=== PATIENT | female | born 1945 | race Caucasian/White ===

== ENCOUNTER 2018-07-01 13:41 | Emergency (ER) | payer MEDICARE ==
[~2018-07-01] VITALS: Ht 165.1 cm; Wt 113.6 kg
[2018-07-01 14:13] VITALS: BP 169/89
[2018-07-01] MEDS ORDERED: ibuprofen tablet 400 MG TABLET PO ONE (14:25)
[2018-07-01] MEDS ORDERED: HYDR-4353 PO (14:50)
[2018-07-01] MEDS ORDERED: NAPR-56 PO (14:50)
== END 2018-07-01 15:39 | disposition home or self-care (01) ==
LOC: ER 13:42
DX: S52.502A Unspecified fracture of the lower end of left radius, initial encounter for closed fracture (principal); W01.198A Fall on same level from slipping, tripping and stumbling with subsequent striking against other object, initial encounter; Y93.89 Activity, other specified; Y92.89 Other specified places as the place of occurrence of the external cause; Y99.8 Other external cause status
CPT/HCPCS: 29125; 73110; 99284

== ENCOUNTER 2018-07-08 09:59 | Outpatient (CLI) | payer MEDICARE ==
[~2018-07-08 09:59] MED LIST: NAPR-56 PO
[2018-07-08 10:03] VITALS: BP 164/79
== END 2018-07-08 10:45 | disposition home or self-care (01) ==
LOC: ORTHO 09:59
PROVIDERS: ATTEND Nurse Practitioner Family
DX: S52.592A Other fractures of lower end of left radius, initial encounter for closed fracture (principal); M85.88 Other specified disorders of bone density and structure, other site; W01.0XXA Fall on same level from slipping, tripping and stumbling without subsequent striking against object, initial encounter; Y93.89 Activity, other specified; Y92.89 Other specified places as the place of occurrence of the external cause; Y99.8 Other external cause status
CPT/HCPCS: 73110; 99213; A4590

== ENCOUNTER 2018-07-22 10:43 | Outpatient (CLI) | payer MEDICARE ==
[2018-07-22 10:46] VITALS: BP 142/60
== END 2018-07-22 11:41 | disposition home or self-care (01) ==
LOC: ORTHO 10:43
PROVIDERS: ATTEND Nurse Practitioner Family
DX: S52.592D Other fractures of lower end of left radius, subsequent encounter for closed fracture with routine healing (principal); I10 Essential (primary) hypertension; F32.9 Major depressive disorder, single episode, unspecified; W18.09XD Striking against other object with subsequent fall, subsequent encounter
CPT/HCPCS: 73110; 99213; A4590

== ENCOUNTER 2018-08-05 10:40 | Outpatient (CLI) | payer MEDICARE ==
[2018-08-05 10:36] VITALS: BP 163/86
== END 2018-08-05 11:02 | disposition home or self-care (01) ==
LOC: ORTHO 10:40
PROVIDERS: ATTEND Nurse Practitioner Family
DX: S52.592D Other fractures of lower end of left radius, subsequent encounter for closed fracture with routine healing (principal); I10 Essential (primary) hypertension; F32.9 Major depressive disorder, single episode, unspecified; W01.0XXD Fall on same level from slipping, tripping and stumbling without subsequent striking against object, subsequent encounter
CPT/HCPCS: 73110

== ENCOUNTER 2018-08-26 09:38 | Outpatient (CLI) | payer MEDICARE ==
[2018-08-26 09:35] VITALS: BP 155/73
== END 2018-08-26 10:01 | disposition home or self-care (01) ==
LOC: ORTHO 09:38
PROVIDERS: ATTEND Nurse Practitioner Family
DX: S52.592G Other fractures of lower end of left radius, subsequent encounter for closed fracture with delayed healing (principal); M85.88 Other specified disorders of bone density and structure, other site; I10 Essential (primary) hypertension; F32.9 Major depressive disorder, single episode, unspecified; Z87.891 Personal history of nicotine dependence; W01.0XXD Fall on same level from slipping, tripping and stumbling without subsequent striking against object, subsequent encounter
CPT/HCPCS: 73110; 99213

== ENCOUNTER 2018-09-18 10:13 | Outpatient (CLI) | payer MEDICARE ==
[2018-09-18 10:17] VITALS: BP 154/97
== END 2018-09-18 10:42 | disposition home or self-care (01) ==
LOC: ORTHO 10:13
PROVIDERS: ATTEND Nurse Practitioner Family
DX: S52.592G Other fractures of lower end of left radius, subsequent encounter for closed fracture with delayed healing (principal); I10 Essential (primary) hypertension; F32.9 Major depressive disorder, single episode, unspecified; M85.88 Other specified disorders of bone density and structure, other site; W01.0XXD Fall on same level from slipping, tripping and stumbling without subsequent striking against object, subsequent encounter
CPT/HCPCS: 73110; 99213

== ENCOUNTER 2019-10-16 05:09 | Day surgery (SDC) | payer MEDICARE ==
[2019-10-12 13:56] LABS: BASOPHILS # (AUTO) 0.1 X10'3 (0-0.2); BASOPHILS % (AUTO) 0.9 % (0-1); EOSINOPHILS # (AUTO) 0.1 X10'3 (0-0.9); EOSINOPHILS % (AUTO) 1.8 % (0-6); LYMPHOCYTES # (AUTO) 2.1 X10'3 (1.1-4.8); LYMPHOCYTES % (AUTO) 32.7 % (21-51); MEAN CORPUSCULAR HEMOGLOBIN 28.3 PG (27.0-31.0); MEAN CORPUSCULAR HGB CONC 33.3 g/dL (33.0-36.5); MEAN CORPUSCULAR VOLUME 85.1 FL (78-98); MEAN PLATELET VOLUME 8.2 FL (7.4-10.4); MONOCYTES # (AUTO) 0.6 X10'3 (0-0.9); MONOCYTES % (AUTO) 9.3 % (2-12); NEUTROPHILS # (AUTO) 3.5 X10'3 (1.8-7.7); NEUTROPHILS % (AUTO) 55.3 % (42-75); PRE OP HEMATOCRIT 42.3 % (35.0-45.0); PRE OP HEMOGLOBIN 14.1 g/dL (12.0-16.0); PRE OP PLATELET COUNT 244 X10'3 (140-440); RED BLOOD COUNT 4.97 X10'6 (4.20-5.60); RED CELL DISTRIBUTION WIDTH 14.1 % (11.5-14.5)
[2019-10-12 14:09] LABS: ALBUMIN 3.6 G/DL (3.4-5.0); ALKALINE PHOSPHATASE 50 IU/L (46-116); BLOOD UREA NITROGEN 10 MG/DL (7-18); BUN/CREATININE RATIO 13.2 (6.6-38.0); CALCIUM 9.2 MG/DL (8.5-10.1); CHLORIDE 108 MMOL/L (99-107); CREATININE 0.76 MG/DL (0.40-0.90); PRE OP ALT 18 U/L (30-65); PRE OP ANION GAP 2 (8-16); PRE OP AST 17 U/L (10-37); PRE OP BILIRUB, TOTAL 0.4 MG/DL (0.0-1.0); PRE OP GLUCOSE 124 MG/DL (70-104); PRE OP POTASSIUM 3.8 MMOL/L (3.4-5.1); PRE OP SODIUM 144 MMOL/L (135-145); TOTAL CARBON DIOXIDE 33.8 MMOL/L (24-32); TOTAL PROTEIN 7.1 G/DL (6.4-8.2); eGFR 74 ML/MIN
[~2019-10-16] VITALS: Ht 165.1 cm; Wt 111.8 kg
[2019-10-16] VITALS (8 sets, daily range): BP systolic 109–148; BP diastolic 59–78
[~2019-10-16 05:09] MED LIST changes: +CELE-85 PO; +COLE1TAB4 PO; +HYDR25TA4 PO; -NAPR-56 PO; +VENL37.589 PO; +ringers solution, lacted 1,000 ML IV SCH
[2019-10-16] MEDS ORDERED: cefazolin/dext.iso 2gm/100ml 100 ML IV ONE (05:30)
[2019-10-16] MEDS ORDERED: famotidine 10mg tablet PO ONE (05:30)
[2019-10-16] MEDS ORDERED: famotidine 20mg tablet PO ONE (05:50)
[2019-10-16] MEDS ORDERED: LIDOcaine 1% (10mg/ml) 2ml vial ONE (06:22)
[2019-10-16] MEDS ORDERED: BUPIVAcaine/PF 2.5 mg/ml (0.25%) 30ml vial ONE (06:48)
[2019-10-16] MEDS ORDERED: LIDOcaine 0.5% (5mg/ml) 50ml vial ONE (07:50)
[2019-10-16] MEDS ORDERED: fentaNYL/PF 50MCG/1 ML 2ML syringe ONE (07:52)
[2019-10-16] MEDS ORDERED: midazolam 2 mg/2 ml injection ONE (07:52)
[2019-10-16] MEDS ORDERED: propofol inj 20 ML IV ONE (08:02)
[2019-10-16] MEDS ORDERED: ringers solution, lacted 1,000 ML IV SCH ×2 (08:17)
[2019-10-16] MEDS ORDERED: fentaNYL/PF 50MCG/1 ML 2ML syringe IV PRN ×2 (08:20)
[2019-10-16] MEDS ORDERED: proCHLORperazine 10 MG/2 ml inj IV PRN (08:20)
[2019-10-16] MEDS ORDERED: labetalol 20mg/4ml (5mg/ml) syringe IV PRN (08:20)
[2019-10-16] MEDS ORDERED: acetaminophen 1,000mg/100ml IV 100 ML IV PRN (08:20)
[2019-10-16] MEDS ORDERED: morphine 4 MG/ML inj SYRINge IV PRN ×2 (08:20)
[2019-10-16] MEDS ORDERED: hydrALAZINE 20mg/ml inj. IV PRN (08:20)
[2019-10-16] MEDS ORDERED: ondansetron/PF 4mg/2ml inj IV PRN ×2 (08:20)
[2019-10-16] MEDS ORDERED: meperidine/PF 25mg/ml syringe IV PRN (08:20)
[2019-10-16] MEDS ORDERED: ketorolac tromethamine 15mg/ml inj. IV ONE (08:20)
--- NOTE | 2019-10-16 09:10 | NUR ---
Received from OR via BED, accompanied by Anesthesiologist DR SHARMA and report given by Anesthesiolgist. PATIENT A&OX4, DENIES PAIN, V/S WNL, NEUROVASCULAR CHECKS INTACT, 20G PIV RUE, SCD ON, DRESSING/ SPLINT TO LEFT FOREARM CDI ELEVATED WITH ICEBAG APPLIED.
--- NOTE | 2019-10-16 10:10 | NUR ---
PATIENT A&OX4, DENIES PAIN, V/S WNL, NEUROVASCULAR CHECKS INTACT, 20G PIV RUE D/C, SCD OFF, DRESSING/ SPLINT TO LEFT ARM CDI ELEVATED WITH ICEBAG APPLIED. I HAVE REVIEWED D/C INSTRUCTIONS WITH PATIENT AND FAMILY AND THEY HAVE VERBALIZED UNDERSTANDING. PATIENT D/C HOME WITH ALL BELONGINGS AND FAMILY GAVE TRANSPORT HOME.
== END 2019-10-16 10:10 | disposition home or self-care (01) ==
LOC: PAS 05:09
PROVIDERS: ATTEND Orthopaedic Surgery Hand Surgery
DX: M25.832 Other specified joint disorders, left wrist (principal); I10 Essential (primary) hypertension; F32.9 Major depressive disorder, single episode, unspecified; M19.032 Primary osteoarthritis, left wrist; E66.9 Obesity, unspecified; Z68.36 Body mass index [BMI] 36.0-36.9, adult; Z79.899 Other long term (current) drug therapy; Z72.89 Other problems related to lifestyle; Z98.41 Cataract extraction status, right eye; Z98.42 Cataract extraction status, left eye; Z90.49 Acquired absence of other specified parts of digestive tract
CPT/HCPCS: 25390; 36415; 80053; 82948; 85025; 93005; C1713; J0131; J1885; J2001; J2250; J2270; J2405; J2704; J3010; J3490; J7120; A4215; A4618; A6449; A7000

== ENCOUNTER 2020-12-12 13:01 | Emergency (ER) | payer MEDICARE ==
[~2020-12-12] VITALS: Ht 165.1 cm; Wt 110.1 kg
[~2020-12-12 13:01] MED LIST changes: -ringers solution, lacted 1,000 ML IV SCH
[2020-12-12] MEDS ORDERED: HYDROcodone/acetaminophen 5mg/325mg tablet PO ONE (14:05)
[2020-12-12] MEDS ORDERED: HYDR-3965 PO (14:13)
[2020-12-12] MEDS ORDERED: DOCU-150 PO (14:13)
[2020-12-12 16:39] VITALS: BP 155/52
== END 2020-12-12 16:41 | disposition home or self-care (01) ==
LOC: ER 13:02
DX: S42.292A Other displaced fracture of upper end of left humerus, initial encounter for closed fracture (principal); I10 Essential (primary) hypertension; Z79.899 Other long term (current) drug therapy; W18.39XA Other fall on same level, initial encounter; Y93.89 Activity, other specified; Y92.89 Other specified places as the place of occurrence of the external cause; Y99.8 Other external cause status
CPT/HCPCS: 29105; 73030; 73070; 99284

== ENCOUNTER 2021-12-04 19:43 | Inpatient (IN) | payer MEDICARE ==
[~2021-12-04] VITALS: Ht 162.6 cm; Wt 102.3 kg
[~2021-12-04 19:43] MED LIST changes: +DOCU-150 PO
[2021-12-04 20:12] LABS: BASOPHILS % (AUTO) 0.3 % (0-1); EOSINOPHILS # (AUTO) 0.1 X10'3 (0-0.9); EOSINOPHILS % (AUTO) 1.6 % (0-6); HEMATOCRIT 40.9 % (35.0-45.0); HEMOGLOBIN 13.4 g/dl (12.0-16.0); LYMPHOCYTES # (AUTO) 2.2 X10'3 (1.1-4.8); LYMPHOCYTES % (AUTO) 30.3 % (21-51); MEAN CORPUSCULAR HEMOGLOBIN 28.3 PG (27.0-31.0); MEAN CORPUSCULAR HGB CONC 32.6 g/dL (33.0-36.5); MEAN CORPUSCULAR VOLUME 86.8 FL (78-98); MEAN PLATELET VOLUME 7.9 FL (7.4-10.4); MONOCYTES # (AUTO) 0.8 X10'3 (0-0.9); MONOCYTES % (AUTO) 10.5 % (2-12); NEUTROPHILS # (AUTO) 4.2 X10'3 (1.8-7.7); NEUTROPHILS % (AUTO) 57.3 % (42-75); PLATELET COUNT 255 X10'3 (140-440); RED BLOOD COUNT 4.72 X10'6 (4.20-5.60); RED CELL DISTRIBUTION WIDTH 13.8 % (11.5-14.5); WHITE BLOOD COUNT 7.3 X10'3 (4.5-11.0)
[2021-12-04 20:28] LABS: ALANINE AMINOTRANSFERASE 22 U/L (12-78); ALBUMIN 3.4 G/DL (3.4-5.0); ALBUMIN/GLOBULIN RATIO 0.9 (1.1-1.5); ALKALINE PHOSPHATASE 47 IU/L (46-116); ANION GAP 8 (8-16); ASPARTATE AMINO TRANSFERASE 22 U/L (10-37); BILIRUBIN,TOTAL 0.3 MG/DL (0.1-1.0); BLOOD UREA NITROGEN 15 MG/DL (7-18); BUN/CREATININE RATIO 20.8 (6.6-38.0); CALCIUM 9.3 MG/DL (8.5-10.1); CHLORIDE 108 MMOL/L (99-107); CREATININE 0.72 MG/DL (0.40-0.90); GLUCOSE 105 MG/DL (70-104); POTASSIUM 3.8 MMOL/L (3.5-5.1); SODIUM 145 MMOL/L (135-145); TOTAL CARBON DIOXIDE 29.2 MMOL/L (24-32); TOTAL PROTEIN 7.2 G/DL (6.4-8.2); eGFR 79 ML/MIN
[2021-12-04] MEDS ORDERED: OLME20TA23 PO (23:23)
[2021-12-05] VITALS (10 sets, daily range): BP systolic 116–188; BP diastolic 43–68
[2021-12-05] MEDS ORDERED: mag hydrox/Alum hydrox/simeth 30ml oral suspension PO PRN (01:15)
[2021-12-05] MEDS ORDERED: magnesium hydroxide 30ml (MOM) UD suspension PO PRN (01:15)
[2021-12-05] MEDS ORDERED: bisacodyl 10mg suppository rectal RC PRN (01:15)
[2021-12-05] MEDS ORDERED: diphenhydrAMINE 25mg capsule PO PRN (01:15)
[2021-12-05] MEDS ORDERED: ondansetron/PF 4mg/2ml inj IV PRN (01:15)
[2021-12-05] MEDS ORDERED: ondansetron 4mg rapidly disintigrating tab PO PRN (01:15)
[2021-12-05] MEDS ORDERED: normal saline 1000ml 1,000 ML IV SCH (01:15)
[2021-12-05] MEDS ORDERED: acetaminophen 650mg rectal suppository RC PRN (01:15)
[2021-12-05] MEDS ORDERED: diphenhydrAMINE 50 mg/ml inj IV PRN (01:15)
[2021-12-05] MEDS ORDERED: acetaminophen 325mg tablet PO PRN (01:15)
[2021-12-05] MEDS ORDERED: atropine 1 MG/1 ML vial IV ONE (01:20)
[2021-12-05] MEDS: hydrALAZINE 20mg/ml inj. IV SCH ×4 (01:44→19:39)
[2021-12-05 02:18] LABS: HEMOGLOBIN A1C 6.3 % (4.5-6.2)
[2021-12-05 02:23] LABS: APTT 31 SECONDS (22-32); D-DIMER 0.26 MG/L FEU (0-0.50)
[2021-12-05 02:36] LABS: MAGNESIUM 2.2 MG/DL (1.5-2.4); PHOSPHORUS 3.9 MG/DL (2.3-4.5)
[2021-12-05] MEDS: docusate sod 100mg capsule PO SCH (08:00)
[2021-12-05] MEDS ORDERED: COLESTIPOL 1 GM PO SCH (08:00)
[2021-12-05] MEDS: pantoprazole 40mg Tablet.DR PO SCH (09:39)
[2021-12-05] MEDS: losartan 50mg tablet PO SCH (09:43)
[2021-12-05] MEDS: heparin, porcine 5000 units/ml vial SQ SCH ×2 (09:44→19:39)
[2021-12-05] MEDS ORDERED: potassium CL 10mEq/100ml bag 100 ML IV PRN (09:50)
[2021-12-05] MEDS ORDERED: magnesium 4gm in 100ml NS 100 ML IV PRN (09:50)
[2021-12-05] MEDS ORDERED: magnesium Cl slow-release 64mg tablet PO PRN (09:50)
[2021-12-05] MEDS ORDERED: potassium Cl 20 mEq SR tablet PO PRN ×2 (09:50)
[2021-12-05] MEDS: COLESTIPOL 1 GM PO SCH ×2 (11:47→20:00)
[2021-12-05] MEDS ORDERED: fentaNYL/PF 50MCG/1 ML 2ML syringe ONE ×2 (13:01→15:54)
[2021-12-05] MEDS ORDERED: midazolam 1 mg/ML 2ml injection ONE ×2 (13:01→15:54)
[2021-12-05] MEDS ORDERED: LIDOcaine 1% w/EPI 1:100,000 30ml vial (MDV) ONE ×2 (13:02→14:08)
[2021-12-05] MEDS ORDERED: ceFAZolin 1000mg inj ONE (13:02)
[2021-12-05] MEDS ORDERED: ceFAZolin 2gm in dextrose, iso 50 ML IV ONE (13:58)
--- NOTE | 2021-12-05 18:43 | NUR ---
Problems reprioritized. Patient report given, questions answered & plan of care reviewed with Jericho/RN.
[2021-12-05] MEDS: K and/or MAG REPLACEMENT MC SCH (19:19)
[2021-12-05] MEDS: acetaminophen 325mg tablet PO PRN (19:38)
[2021-12-06] MEDS: hydrALAZINE 20mg/ml inj. IV SCH ×4 (01:46→14:17)
[2021-12-06 02:00] VITALS: BP 172/73
[2021-12-06] MEDS: acetaminophen 325mg tablet PO PRN (04:31)
[2021-12-06 06:00] VITALS: BP 152/61
[2021-12-06 07:10] LABS: BASOPHILS % (AUTO) 0.1 % (0-1); EOSINOPHILS # (AUTO) 0.1 X10'3 (0-0.9); HEMATOCRIT 39.7 % (35.0-45.0); HEMOGLOBIN 12.9 g/dl (12.0-16.0); LYMPHOCYTES # (AUTO) 1.8 X10'3 (1.1-4.8); LYMPHOCYTES % (AUTO) 23.3 % (21-51); MEAN CORPUSCULAR HEMOGLOBIN 28.2 PG (27.0-31.0); MEAN CORPUSCULAR HGB CONC 32.6 g/dL (33.0-36.5); MEAN CORPUSCULAR VOLUME 86.6 FL (78-98); MEAN PLATELET VOLUME 8.4 FL (7.4-10.4); MONOCYTES # (AUTO) 0.9 X10'3 (0-0.9); MONOCYTES % (AUTO) 10.8 % (2-12); NEUTROPHILS # (AUTO) 5.2 X10'3 (1.8-7.7); NEUTROPHILS % (AUTO) 64.8 % (42-75); PLATELET COUNT 221 X10'3 (140-440); RED BLOOD COUNT 4.59 X10'6 (4.20-5.60)
[2021-12-06] MEDS: heparin, porcine 5000 units/ml vial SQ SCH (07:29)
[2021-12-06] MEDS: losartan 50mg tablet PO SCH (07:30)
[2021-12-06] MEDS: COLESTIPOL 1 GM PO SCH (07:31)
[2021-12-06] MEDS: pantoprazole 40mg Tablet.DR PO SCH (07:33)
[2021-12-06] MEDS: docusate sod 100mg capsule PO SCH (07:40)
[2021-12-06 07:45] LABS: ALANINE AMINOTRANSFERASE 12 U/L (12-78); ALKALINE PHOSPHATASE 37 IU/L (46-116); ANION GAP 10 (8-16); ASPARTATE AMINO TRANSFERASE 13 U/L (10-37); BILIRUBIN,TOTAL 0.7 MG/DL (0.1-1.0); BLOOD UREA NITROGEN 15 MG/DL (7-18); BUN/CREATININE RATIO 23.8 (6.6-38.0); CALCIUM 8.7 MG/DL (8.5-10.1); CHLORIDE 111 MMOL/L (99-107); CHOL/HDL RATIO 2.4 (0.00-4.99); CHOLESTEROL 146 MG/DL (0-200); CREATININE 0.63 MG/DL (0.40-0.90); GLUCOSE 113 MG/DL (70-104); HDL CHOLESTEROL 62 MG/DL (35-60); LDL CHOLESTEROL 71 MG/DL (50-100); MAGNESIUM 1.9 MG/DL (1.5-2.4); PHOSPHORUS 3.6 MG/DL (2.3-4.5); POTASSIUM 3.7 MMOL/L (3.5-5.1); SODIUM 147 MMOL/L (135-145); TOTAL CARBON DIOXIDE 25.7 MMOL/L (24-32); TRIGLYCERIDES 30 MG/DL (20-135); eGFR > 90 ML/MIN
[2021-12-06] MEDS: K and/or MAG REPLACEMENT MC SCH (08:00)
[2021-12-06] MEDS ORDERED: cephalexin 500mg capsule PO SCH (09:55)
[2021-12-06 11:00] VITALS: BP 144/53
[2021-12-06 14:00] VITALS: BP_SYST 188
--- NOTE | 2021-12-06 14:09 | NUR ---
Page Accepted Message: Pt [id number] Petra Marco, is stating that she was told she was getting discharged today, but there are no orders. Can you confirm? [facility] [id number]
[2021-12-06] MEDS ORDERED: CEPH-585 PO (14:40)
[2021-12-06] MEDS ORDERED: AMLO5TAB16 PO (14:40)
[2021-12-06] MEDS ORDERED: PANT40TA54 PO (14:40)
[2021-12-06] MEDS ORDERED: cloNIDine 0.1 mg tablet PO SCH ×2 (14:59→21:00)
--- NOTE | 2021-12-06 15:31 | NUR ---
Patient is d/c, no IV access. Dr. Hawk was made aware and catapres 0.2mg were ordered and given.
--- NOTE | 2021-12-06 15:35 | NUR ---
Discharged pt home, in stable condition, accompanied by . Discharge instructions given and pt verbalized understanding.
== END 2021-12-06 17:50 | disposition home or self-care (01) | DRG 243 ==
LOC: ER 19:44 → UNDOADMIN 12-05 01:17 → ED HOLD 12-05 01:17 → PCU 3S 12-05 04:58 → ED HOLD 12-05 04:58
PROVIDERS: ADMIT Family Medicine; ATTEND Family Medicine
PROC: 0JH606Z Insertion of Pacemaker, Dual Chamber into Chest Subcutaneous Tissue and Fascia, Open Approach (ICD-10-PCS; principal; 2021-12-05)
PROC: 02HK3JZ Insertion of Pacemaker Lead into Right Ventricle, Percutaneous Approach (ICD-10-PCS; 2021-12-05)
PROC: 02H63JZ Insertion of Pacemaker Lead into Right Atrium, Percutaneous Approach (ICD-10-PCS; 2021-12-05)
DX: I44.1 Atrioventricular block, second degree (principal); E87.0 Hyperosmolality and hypernatremia; R00.1 Bradycardia, unspecified; R55 Syncope and collapse; I10 Essential (primary) hypertension; K52.9 Noninfective gastroenteritis and colitis, unspecified; E78.5 Hyperlipidemia, unspecified; Z82.5 Family history of asthma and other chronic lower respiratory diseases; Z87.891 Personal history of nicotine dependence; Z79.899 Other long term (current) drug therapy; Z90.49 Acquired absence of other specified parts of digestive tract
CPT/HCPCS: 33208; 36415; 71045; 80053; 80061; 83036; 83690; 83735; 83880; 84100; 84443; 84484; 85025; 85379; 85610; 85730; 93005; 93306; 96360; 99152; 99153; 99285; A4620; A6258; C1785; C1898; G0378; J0360; J0461; J0690; J1644; J2250; J3010; J3490; J7030

== ENCOUNTER 2022-01-09 05:33 | Emergency (ER) | payer MEDICARE ==
[~2022-01-09] VITALS: Ht 165.1 cm; Wt 100.3 kg
[~2022-01-09 05:33] MED LIST changes: +AMLO5TAB16 PO; -CELE-85 PO; +CEPH-585 PO; -DOCU-150 PO; -HYDR25TA4 PO; +OLME20TA23 PO; +PANT40TA54 PO; -VENL37.589 PO
[2022-01-09 06:31] LABS: BASOPHILS % (AUTO) 0.2 % (0-1); EOSINOPHILS # (AUTO) 0.1 X10'3 (0-0.9); EOSINOPHILS % (AUTO) 1.1 % (0-6); HEMATOCRIT 39.8 % (35.0-45.0); HEMOGLOBIN 13.2 g/dl (12.0-16.0); LYMPHOCYTES # (AUTO) 1.2 X10'3 (1.1-4.8); LYMPHOCYTES % (AUTO) 16.7 % (21-51); MEAN CORPUSCULAR HGB CONC 33.1 g/dL (33.0-36.5); MEAN CORPUSCULAR VOLUME 84.3 FL (78-98); MEAN PLATELET VOLUME 7.6 FL (7.4-10.4); MONOCYTES # (AUTO) 0.8 X10'3 (0-0.9); MONOCYTES % (AUTO) 11.6 % (2-12); NEUTROPHILS # (AUTO) 4.9 X10'3 (1.8-7.7); NEUTROPHILS % (AUTO) 70.4 % (42-75); PLATELET COUNT 197 X10'3 (140-440); RED BLOOD COUNT 4.71 X10'6 (4.20-5.60); RED CELL DISTRIBUTION WIDTH 13.7 % (11.5-14.5); WHITE BLOOD COUNT 6.9 X10'3 (4.5-11.0)
[2022-01-09 06:43] LABS: ALANINE AMINOTRANSFERASE 20 U/L (12-78); ALBUMIN 3.3 G/DL (3.4-5.0); ALBUMIN/GLOBULIN RATIO 0.9 (1.1-1.5); ALKALINE PHOSPHATASE 44 IU/L (46-116); ANION GAP 7 (8-16); ASPARTATE AMINO TRANSFERASE 24 U/L (10-37); BILIRUBIN,TOTAL 0.7 MG/DL (0.1-1.0); BLOOD UREA NITROGEN 11 MG/DL (7-18); BUN/CREATININE RATIO 13.6 (6.6-38.0); CALCIUM 8.8 MG/DL (8.5-10.1); CHLORIDE 110 MMOL/L (99-107); CREATININE 0.81 MG/DL (0.40-0.90); GLUCOSE 130 MG/DL (70-104); POTASSIUM 4.3 MMOL/L (3.5-5.1); SODIUM 145 MMOL/L (135-145); TOTAL CARBON DIOXIDE 28.1 MMOL/L (24-32); TOTAL PROTEIN 6.8 G/DL (6.4-8.2); eGFR 69 ML/MIN
[2022-01-09] MEDS ORDERED: normal saline 1000ML IV soln IVB ONE (06:45)
[2022-01-09 06:50] LABS: MAGNESIUM 1.7 MG/DL (1.5-2.4)
[2022-01-09 06:56] LABS: CLARITY,URINE CLEAR (Clear); COLOR,URINE YELLOW (Yellow); GLUCOSE, URINE NEGATIVE (Neg); KETONES,URINE NEGATIVE (Neg); LEUKOCYTE ESTERASE ,URINE SMALL (Neg); NITRITES, URINE NEGATIVE (Neg); OCCULT BLOOD,URINE TRACE-INTACT (Neg); PH,URINE 7.5 (4.8-8.0); PROTEIN,URINE NEGATIVE (Neg); UA COLLECTION TYPE NON-SPECIFIED; UROBILINOGEN,URINE 0.2 E.U/dL (0.2-1.0)
[2022-01-09 06:59] LABS: WBC CLUMPS,URINE FEW /HPF (NEGATIVE)
[2022-01-09 07:00] LABS: BACTERIA,URINE FEW /HPF (Neg); SQUAMOUS EPITHELIAL CELL,UR FEW /LPF (FEW)
[2022-01-09] MEDS ORDERED: metoprolol tartrate 50mg tablet PO ONE (07:20)
[2022-01-09] MEDS ORDERED: CefTRIAXone 2gm/D5W 50ml BAG 50 ML IV ONE (07:20)
[2022-01-09] MEDS ORDERED: CefTRIAXone 2gm/NS 100ml IVPB 100 ML IV ONE ×2 (07:28→07:34)
[2022-01-09] MEDS ORDERED: CEPH-585 PO (08:53)
[2022-01-09 09:03] VITALS: BP 188/70
[2022-01-09 09:12] LABS: APTT 29 SECONDS (22-32); D-DIMER 0.99 MG/L FEU (0-0.50)
== END 2022-01-09 09:04 | disposition home or self-care (01) ==
LOC: ER 05:34
DX: N39.0 Urinary tract infection, site not specified (principal); R07.89 Other chest pain; I10 Essential (primary) hypertension; Z95.0 Presence of cardiac pacemaker; Z79.2 Long term (current) use of antibiotics; Z79.899 Other long term (current) drug therapy
CPT/HCPCS: 36415; 71045; 80053; 81001; 83735; 83880; 84484; 85025; 85379; 85610; 85730; 87088; 87186; 96361; 96365; 99284; J0696; J7030; 87077; 93005